=== PATIENT | female | born 1980 | race Caucasian/White ===

== ENCOUNTER 2017-02-15 11:03 | Emergency (ER) | payer SELFPAY ==
[~2017-02-15] VITALS: Wt 77.3 kg
[~2017-02-15 11:03] MED LIST: METRONIDAZOLE500 MG PO; NO HOME MEDICATIONS; NORCO 325 MG-51 TAB PO; PRENATAL1 TA3; TAMIFLU 75MG75 MG PO
[2017-02-15 11:10] VITALS: BP 119/65; PULSE 84; TEMP 98.5
[2017-02-15] MEDS ORDERED: NEXPLANON68 MG ID (11:15)
[2017-02-15] MEDS ORDERED: NORCO 325 MG-51 TAB PO (11:31)
[2017-02-15] MEDS ORDERED: AMOXICILLIN 8751 TAB PO (11:31)
[2017-02-15] MEDS ORDERED: CORTISPORIN OTI10 M2 OT (11:31)
== END 2017-02-15 11:51 | disposition home or self-care (01) ==
LOC: COL.ER 11:03
DX: H60.92 Unspecified otitis externa, left ear (principal); R59.0 Localized enlarged lymph nodes

== ENCOUNTER 2019-03-13 06:28 | Inpatient (IN) | payer OTHER ==
[~2019-03-13] VITALS: Ht 149.9 cm; Wt 75.0 kg
[2019-03-13] VITALS (27 sets, daily range): BP systolic 96–148; BP diastolic 50–81; PULSE 69–97; TEMP 98–99
[~2019-03-13 06:28] MED LIST changes: +AMOXICILLIN 8751 TAB PO; +CORTISPORIN OTI10 M2 OT; +NEXPLANON68 MG ID
--- NOTE | 2019-03-13 06:30 | NUR ---
Pt here for scheduled induction. 40.4 weeks gestation, . Pt vincentian speaking with limited [place]. Pt has friend here translating. at bedside as well. Pt to [facility], explained. Consents explained and signed. Assessment complete. Denies any complications, states baby has been active and no vaginal bleeding or leaking of fluid. IV started to left wrist, blood drawn from IV site. LR infusing without difficulty. FHR with minimal variability noted, IVF bolus given. 0710:Dr Saravia called this nurse and notified of ctx every 4-6 minutes and pt breathing through them. Pt may have epidural if wanting and physician to be here around 1000 to evaluate. Will call if needed. SVE: 3-/-3. 0715:FHR reactive, pitocin started at 2mu per order.
[2019-03-13] MEDS ORDERED: PRENATAL (07:04)
[2019-03-13 07:51] LABS: BASO # 0.1 (0.0-0.2); BASO % 0.6 % (0.0-2.0); EOS # 0.1 (0.0-0.7); EOS % 1.2 % (0-4.0); GRAN # 5.1 (1.4-6.5); GRAN % 62.8 % (42.2-75.2); HEMOGLOBIN 11.8 g/dl (12.5-16.0); LYMPH # 2.2 (1.2-3.4); LYMPH % 27.1 % (20.0-51.0); MEAN CELL VOLUME 87 fl (80.0-100.0); MEAN CORPUSCULAR HEMOGLOBIN 29 pg (27.0-31.0); MEAN CORPUSCULAR HGB CONC 33 g/dl (33.0-37.0); MEAN PLATELET VOLUME 10.1 fl (7.4-10.4); MONO # 0.6 (0.1-0.6); MONO % 7.2 % (1.7-9.3); PLATELET COUNT 220 K/mm3 (130-400); RED BLOOD COUNT 4.14 M/mm3 (4.10-5.30); REDCELL DISTRIBUTION WIDTH-CV 15.5 % (11.5-14.5)
[2019-03-13 07:57] LABS: HEMATOCRIT 36.2 % (37.0-47.0)
--- NOTE | 2019-03-13 09:50 | NUR ---
Pt to birthing ball. 0953:Maternal pulse tracing on FHR monitor. EFM repositioned, FHR 130bpm. 1000:Dr Saravia here, SVE: 3-4/80/-3, AROM-light meconium fluid noted. Pt denies wanting epidural at this time.
--- NOTE | 2019-03-13 11:15 | NUR ---
Pt requesting to have SVE. This nurse at bedside, SVE 5/80/-2. 1130:Pt feeling pressure, urge to push, SVE: 7/80/-2. 1140: SVE: 9/100/0. Dr Saravia at nurses station and updated. Pt prepped for delivery. 1155:Dr Saravia notified and at bedside. Pt pushing with contractions, SVE: complete. 1207: of baby girl's head and shoulders. Perineum intact. 1208:Spontaneous delivery of placenta. LR with pitocin infusing at 333ml/hr per protocol. 1215:Fundus massaged, moderate amounts of free flow noted with massage. Dr Saravia evaluating, orders for methergine IM. 1216:0.2mg Methergine given IM. See EMAR. 1220:Dr Saravia at bedside, fundal checked and minimal bleeding noted at this time. Will continue to monitor. Pt sitting up in bed holding infant. Pericare done and new pads and ice pack in place.
--- NOTE | 2019-03-13 12:50 | NUR ---
Fundus firm, bleeding is moderate free flow, no clots noted. Pt up to bathroom with assist, unable to void at this time. Pericare done and new pads and gown on. Pt back to bed and fundus firm and bleeding now small. Pt sitting up holding . Will continue to monitor vaginal bleeding and will attempt to void in 1 hour.
--- NOTE | 2019-03-13 13:45 | NUR ---
Fundus firm but deviated to the left and 1 above umbilicus. Pt to bathroo, unable to void. Pt back to bed, straight catheter used, 400ml urine returned. Pt c/o pain, see EMAR.
--- NOTE | 2019-03-13 14:00 | NUR ---
Pericare performed and new pads and underwear in place. Pt to wheelchair and taken to rom 219. States pain is much better. Instructed pt to call if needing to use the bathroom. Baby at side in crib.
[2019-03-14 00:06] VITALS: BP 103/80; PULSE 88; TEMP 98.6
[2019-03-14 04:03] VITALS: BP 93/48; PULSE 76; TEMP 98.1
[2019-03-14 08:14] VITALS: BP 92/41; PULSE 69; TEMP 98.1
[2019-03-14] MEDS ORDERED: MOTRIN 800800 MG/TAB PO (08:42)
[2019-03-14] MEDS ORDERED: PERCOCET 325 MG1 TA2 PO (08:43)
--- NOTE | 2019-03-14 09:12 | NUR ---
Initial visit; Patient appeared receptive to Brakes Inspector offering congratulations and God's blessings for the of her daughter. Brakes Inspector thanked patient for choosing [facility].
--- NOTE | 2019-03-14 14:45 | NUR ---
discharge instructions given, pt has family member at bedside translating informaion. Pt verbalizes understanding. [facility] calls [facility] and appt scheduled for tuesdaymar [address] Love. Pt verbalizes understanding. Bands matched and hugs tag removed. in carseat.
== END 2019-03-14 14:55 | disposition home or self-care (01) | DRG 807 ==
LOC: OB 06:28 → LDR 06:28 → OB 14:25
PROVIDERS: ADMIT Obstetrics & Gynecology
PROC: 10E0XZZ Delivery of Products of Conception, External Approach (ICD-10-PCS; principal; 2019-03-13)
PROC: 10907ZC Drainage of Amniotic Fluid, Therapeutic from Products of Conception, Via Natural or Artificial Opening (ICD-10-PCS; 2019-03-13)
PROC: 3E033VJ Introduction of Other Hormone into Peripheral Vein, Percutaneous Approach (ICD-10-PCS; 2019-03-13)
DX: O77.0 Labor and delivery complicated by meconium in amniotic fluid (principal); Z37.0 Single live birth; Z3A.40 40 weeks gestation of pregnancy
CPT/HCPCS: J2210; J2590; J7120

== ENCOUNTER 2021-08-08 14:17 | Emergency (ER) | payer SELFPAY ==
[~2021-08-08] VITALS: Ht 162.6 cm; Wt 68.2 kg
[~2021-08-08 14:17] MED LIST changes: +MOTRIN 800800 MG/TAB PO; +PERCOCET 325 MG1 TA2 PO; +PRENATAL
[2021-08-08 14:33] VITALS: TEMP 98.3
[2021-08-08 16:34] LABS: BASO # 0.1 K/mm3 (0.0-0.2); BASO % 0.9 % (0.0-2.0); EOS # 0.2 K/mm3 (0.0-0.7); EOS % 2.9 % (0.0-4.0); GRAN # 3.4 K/mm3 (1.4-6.5); GRAN % 49.3 % (42.2-75.2); HEMATOCRIT 32.3 % (37.0-47.0); LYMPH # 2.7 K/mm3 (1.2-3.4); LYMPH % 38.3 % (20.0-51.0); MEAN CELL VOLUME 84 fl (80.0-100.0); MEAN CORPUSCULAR HEMOGLOBIN 29 pg (27-31); MEAN CORPUSCULAR HGB CONC 34 g/dl (33.0-37.0); MEAN PLATELET VOLUME 9.5 fl (7.4-10.4); MONO # 0.6 K/mm3 (0.1-0.6); MONO % 8.2 % (1.7-9.3); PLATELET COUNT 270 K/mm3 (130-400); RED BLOOD COUNT 3.84 M/mm3 (4.10-5.30); REDCELL DISTRIBUTION WIDTH-CV 13.8 % (11.5-14.5)
[2021-08-08 16:59] LABS: ALANINE AMINOTRANSFERASE 13 U/L (0-55); ALBUMIN 3.6 gm/dL (3.5-5.0); ALKALINE PHOSPHATASE 78 U/L (40-150); ANION GAP 12 mmol/L (7-16); AST,SGOT 16 U/L (5-34); BILIRUBIN,TOTAL 0.2 mg/dL (0.2-1.2); BLOOD UREA NITROGEN 13 mg/dL (7-19); C-REACTIVE PROTEIN 0.25 mg/dL (0.00-0.50); CALCIUM 8.6 mg/dL (8.4-10.2); CARBON DIOXIDE 21 mmol/L (22-29); CHLORIDE 107 mmol/L (98-107); GLUCOSE 108 mg/dL (70-99); LIPASE 31 U/L (8-78); POTASSIUM 3.6 mmol/L (3.5-4.5); SODIUM 140 mmol/L (136-145); TOTAL PROTEIN 6.9 gm/dL (6.2-8.1)
[2021-08-08 17:07] LABS: TROPONIN-I < 0.010 ng/mL (0.00-0.033)
[2021-08-08] MEDS ORDERED: PRILOSEC 20MG20 MG PO (17:56)
[2021-08-08 18:03] LABS: CREATININE, serum 0.64 mg/dL (0.57-1.11)
[2021-08-08 18:07] VITALS: BP 126/87; PULSE 87
== END 2021-08-08 18:17 | disposition home or self-care (01) ==
LOC: COL.ER 14:17
PROVIDERS: Nurse Practitioner
DX: R07.89 Other chest pain (principal); Z20.822 Contact with and (suspected) exposure to COVID-19
CPT/HCPCS: J7030